=== PATIENT | female | born 2000 | race Caucasian/White ===

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

== ENCOUNTER 2022-04-17 22:51 | Emergency (ER) | payer OTHER, SELFPAY ==
[2022-04-17 22:53] VITALS: BP 110/72; PULSE 89; RESP 14; TEMP 36.8; O2SAT 100
--- NOTE | 2022-04-17 23:16 | ED.EAR ---
HPI - Ear Problem General Chief complaint: Skin/Abscess/Foreign Body Stated complaint: something stuck in ear Time Seen by Provider: 04/17/22 23:01 Source: patient History of Present Illness HPI Narrative: Patient presents with a foreign body in her ear. She reports she was using a rubber corkscrewlike Q-tip to clean her ears when it broke off. Family attempted to remove it themselves but was unsuccessful so they came to the ER for evaluation. Patient ports she does have an ear pain over on the left side. Is achy, constant, worse with manipulating the ear, no radiation. Related Data Home Medications Medication Instructions Recorded Confirmed No Home Medications 04/17/22 04/17/22 Allergies Allergy/AdvReac Type Severity Reaction Status Date / Time adhesive Allergy Severe hives Verified 04/17/22 23:07 latex Allergy Unknown HIVES Verified 04/17/22 23:07 HISTAMINES Allergy Unknown SWELLING Uncoded 04/17/22 23:07 Review of Systems Review of Systems: CONSTITUTIONAL: Denies fever, chills, or sweats. EYES: Denies visual changes, redness, or discharge. ENT: Denies rhinorrhea, congestion, sore throat. CARDIOVASCULAR: Denies chest pain, palpitations, or edema. RESPIRATORY: Denies cough or dyspnea. GASTROINTESTINAL: Denies abdominal pain, nausea, vomiting, or diarrhea. SKIN: Denies rash or itching. NEUROLOGIC: Denies numbness, dizziness, or weakness. Exam Narrative: GENERAL: Well-appearing, well-nourished, and in no acute distress. HEAD: Normocephalic, atraumatic. EYES: PERRLA and EOMI. ENT: Nares clear, no rhinorrhea or epistaxis. Haigler rubberlike foreign body visualized in the EAC. NECK: Supple. No masses. EXTREMITIES: Normal range of motion. No edema. SKIN: Warm, dry, no rash. NEURO: No focal deficits. Alert and oriented x3. PSYCH: Normal mood and affect. Course Vital Signs Vital signs: Vital Signs Temperature 36.8 C 04/17/22 22:53 Pulse Rate 89 04/17/22 22:53 Respiratory Rate 14 04/17/22 22:53 Blood Pressure 110/72 04/17/22 22:53 Pulse Oximetry 100 04/17/22 22:53 Temperature 36.8 C 04/17/22 22:53 Pulse Rate 89 04/17/22 22:53 Respiratory Rate 14 04/17/22 22:53 Blood Pressure 110/72 04/17/22 22:53 Pulse Oximetry 100 04/17/22 22:53 Procedures FB Removal Ear Foreign Body #1: Foreign Body Removal Date: 04/17/22 Foreign Body Removal Time: 23:18 Location: ear canal (L) Foreign Body Suspected: other (Rubberlike material) TM intact pre-procedure: unable to visualize Foreign Body Removed: yes Foreign Body Removal Technique: forceps Tympanic Membrane Intact Post Procedure: Yes Patient Tolerated Procedure: well Complications: none Additional Comments: Repeat exam after removal of foreign body TMs were clear there was scant blood in the EAC Medical Decision Making MDM Narrative Medical decision making narrative: H&P as above, vss, pt looks clinically well, exam foreign body in the left EAC easily removed, labs/img considered, symptomatic relief available as needed, patient treated with foreign body removal. On reevaluation pt continues to looks clinically well and had complete resolution of her pain. Suspect isolated foreign body in the EAC no remnants visualized after procedure, dns perforated TM otitis media otitis externa. plan to tx/monitor as op w/ pcm f/u findings/plan discussed with pt, pt agree/comfortable with plan, return precautions given Vital Signs Vital Signs: Vital Signs Temperature 36.8 C 04/17/22 22:53 Pulse Rate 89 04/17/22 22:53 Respiratory Rate 14 04/17/22 22:53 Blood Pressure 110/72 04/17/22 22:53 Pulse Oximetry 100 04/17/22 22:53 Temperature 36.8 C 04/17/22 22:53 Pulse Rate 89 04/17/22 22:53 Respiratory Rate 14 04/17/22 22:53 Blood Pressure 110/72 04/17/22 22:53 Pulse Oximetry 100 04/17/22 22:53 Discharge Plan Discharge Clinical Impression: Foreig
== END 2022-04-17 23:30 | disposition home or self-care (01) ==
PROVIDERS: Emergency Provider Emergency Medicine; PCP Internal Medicine
DX: T16.2XXA Foreign body in left ear, initial encounter (principal)
CPT/HCPCS: 69200; 99282

== ENCOUNTER 2024-07-10 13:41 | Emergency (ER) | payer OTHER, SELFPAY ==
--- NOTE | 2024-07-10 13:43 | ED.FEMALEGU ---
HPI - Female Genitourinary General Chief complaint: Urogenital-Female Stated complaint: Uti Symptoms Time Seen by Provider: 07/10/24 13:43 Source: patient Mode of arrival: ambulatory Limitations: no limitations History of Present Illness HPI Narrative: Naomi is a 24-year-old female patient presenting to the clinic today with complaints of possible urinary tract infection. She reports symptoms started on Wednesday with some burning with urination has been taking azo but notice yesterday that she had some blood in her urine and this prompted her to come in to be evaluated today. She denies any fevers, chills, body aches, back pain, or abdominal pain. Last menstrual period was last week. No concern for or STIs. She denies any vaginal discharge or odor. Related Data Home Medications Medication Instructions Recorded Confirmed escitalopram oxalate 20 mg tablet 20 mg PO DAILY 07/10/24 07/10/24 Allergies Allergy/AdvReac Type Severity Reaction Status Date / Time adhesive Allergy Severe hives Verified 04/17/22 23:07 latex Allergy Unknown HIVES Verified 04/17/22 23:07 hydroxyzine Allergy Unknown Verified 07/10/24 13:50 HISTAMINES Allergy Unknown SWELLING Uncoded 04/17/22 23:07 Review of Systems Review of Systems: Pertinent positives per HPI. Patient denies any fever, chills, rash, headache, visual changes, dizziness, cough, runny nose, sore throat, shortness of breath, chest pain, palpitations, nausea, vomiting, diarrhea, constipation, abdominal pain, or any urinary issues. [facility] Comments At the time of my signature, I reviewed and agree with the nursing past medical, surgical, social, and family history. There is no relevant family history pertinent to the patient complaint. Exam Narrative: General: Well-developed, well nourished, in no apparent distress. Head: Normocephalic, atraumatic. Cardio: Regular rate and rhythm, s1 and s2 normal, no murmur appreciated. Resp: Clear to auscultation bilaterally, no rhonchi, rales, wheezing or rubs. Abdomen: Soft, pliable, bowel sounds present in all quadrants, non-tender to palpation, no organomegly, no CVAT tenderness. Course Course Emergency Course: Portions of this record may have been created with voice recognition software. Level of Care: Express Care Visit Vital Signs Vital signs: Vital signs reviewed MDM - Female Genitourinary MDM Narrative Medical decision making narrative: At the time of visit patient is resting comfortably on the exam table. Patient appears to be nontoxic. Labs: Urine positive for trace of leukocytes, trace of blood, 1+ bili. We will send urine for culture. Plan: I suspect patient may have urinary tract infection. Prescription for Bactrim was sent to the pharmacy. Supportive measures were discussed with the patient and they voiced understanding discharge instructions and agrees to treatment plan. Return precautions reviewed Differential Diagnosis Differential diagnosis: Likely urinary tract infection and cystitis Discharge Plan Discharge Clinical Impression: Urinary tract infection Qualifiers: Urinary tract infection type: acute cystitis Hematuria presence: with hematuria Qualified Code(s): N30.01 - Acute cystitis with hematuria Patient Disposition: Home, Self-Care Condition: Stable Instructions: Antibiotic Form, Urinary Tract Infection in Women (ED) Additional Instructions: Urine positive for trace of bacteria, trace of blood, and 1+ bili. We will send urine for culture. Take Bactrim as prescribed Increase fluids and stay well hydrated Wipe front to back. May use wet wipes. Avoid tub baths If sexually active- pee before and after intercourse. Wear cotton panties Avoid tight clothing up against the genitals Follow up with your PCP in 1 week if symptoms persist. Prescriptions: New sulfamethoxazole-trimethoprim [Bactrim DS] 800-160 mg tablet 1 tablet PO Q12H 5 Days Qty: 10
[2024-07-10 13:50] VITALS: BP 116/71; PULSE 91; RESP 20; TEMP 36.9; O2SAT 99
[2024-07-10 14:00] LABS: EDUAAPPEAR Cloudy; EDUABILI 1+; EDUABLOOD Trace; EDUACOLOR1 Dark; EDUAGLUCOSE Negative; EDUAKETONE Negative; EDUALEUKO Trace; EDUANITRATE Negative; EDUAPH 5.5; EDUAPROTEIN Negative; EDUAUROBILI 0.2
== END 2024-07-10 14:00 | disposition home or self-care (01) ==
PROVIDERS: Emergency Provider Nurse Practitioner Family
DX: N30.01 Acute cystitis with hematuria (principal); F41.9 Anxiety disorder, unspecified
CPT/HCPCS: 81003; 87086; 99213; G0463

== ENCOUNTER 2024-09-04 15:21 | Emergency (ER) | payer OTHER, SELFPAY ==
[2024-09-04 15:49] VITALS: BP 120/80; PULSE 102; RESP 18; TEMP 36.6; O2SAT 100
[2024-09-04 18:37] LABS: Alanine Aminotransferase 18 U/L (6-35); Alkaline Phosphatase 79 U/L (38-126); Anion Gap 16 mmol/L (4-12); Aspartate Amino Transferase 49 U/L (14-36); Bilirubin,Total 1.6 mg/dL (0.2-1.3); Blood Urea Nitrogen 11 mg/dL (7-17); Calcium 9.4 mg/dL (8.4-10.2); Carbon Dioxide 18 mmol/L (22-30); Chloride 101 mmol/L (98-107); Estimated Glomerular Filt Rate > 60; Glucose 63 mg/dL (65-110); Potassium 4.2 mmol/L (3.4-5.0); Sodium 135 mmol/L (137-145)
[2024-09-04 18:38] LABS: Ethanol < 10 mg/dL (<10)
[2024-09-04] MEDS: ONDANSETRON HCL ODT 4 MG TABLET PO (18:46)
[2024-09-04] MEDS: cefTRIAXone 1 GM VIAL 0.5 GM IM (18:46)
[2024-09-04] MEDS: DOXYCYCLINE HYCLATE 100 MG TABLET PO (18:46)
[2024-09-04] MEDS: metroNIDAZOLE 500 MG TABLET PO (18:46)
[2024-09-04 18:51] VITALS: BP 109/82; PULSE 108; RESP 18; O2SAT 100
[2024-09-04] MEDS: LIDOCAINE HCL 1% LOCAL INJ 10 ML VIAL (18:52)
[2024-09-04 18:59] LABS: Add Urine Microscopic? YES; Appearance Urine Clear (Clear); Bacteria Urine None Seen /hpf; Bilirubin Urine Negative (Negative); Blood Urine 3+ (Negative); Color Urine Yellow (Yellow); Glucose Urine UA Negative (Negative); Ketones Urine 4+ mg/dL (Negative); Leukocyte Esterase Ur Negative LEU/UL (Negative); Nitrate Urine Negative (Negative); Non Pathogenic Casts 0-2; Protein Urine Negative (Negative); Specific Grav Ur 1.018 (1.001-1.035); Squamous Epithelial Cell Urine Occasional /hpf (Few); Urobilinogen Urine 0.2 mg/dL (<2.0); WBC Urine 0-5 /hpf (0-3); pH Urine 5.5 (5.0-9.0)
[2024-09-04 19:16] LABS: HIV 1/2 Ab P24 Ag Result Negative (Negative)
[2024-09-04 19:24] LABS: BEDSIDEPREGUCG Negative (Negative)
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
[2024-09-04 19:37] LABS: Amphetamine Screen Urine Negative (Negative); Barbiturate Screen Urine Negative (Negative); Benzodiazepines Screen Urine Negative (Negative); Cannabinoid Screen Urine Positive (Negative); Cocaine Screen Urine Negative (Negative); Methadone Screen Urine Negative (Negative); Opiate Screen Urine Negative (Negative); Phencyclidine Screen Urine Negative (Negative)
[2024-09-04 19:58] LABS: Trichomonas Vag PCR NOT DETECTED (NOT DETECTE)
[2024-09-04 20:21] LABS: Chlamydia trachomatis NOT DETECTED (NOT DETECTE); Neisseria gonorrhoeae PCR NOT DETECTED (NOT DETECTE)
[2024-09-04 22:15] LABS: Rapid Plasma Reagin Non-Reactive (NonReactive)
== END 2024-09-04 21:01 | disposition home or self-care (01) ==
LOC: ANHED 20:32
PROVIDERS: Emergency Provider Emergency Medicine; PCP Internal Medicine
DX: T74.21XA Adult sexual abuse, confirmed, initial encounter (principal); Y07.50 Unspecified non-family member, perpetrator of maltreatment and neglect
CPT/HCPCS: 36415; 80053; 80307; 81001; 81025; 82077; 86592; 86703; 87491; 87591; 87661; 96372; 99285; A9270; G0432; J0696; J2003

== ENCOUNTER 2024-10-22 14:18 | Emergency (ER) | payer OTHER, SELFPAY ==
[2024-10-22 14:35] VITALS: BP 117/79; PULSE 93; RESP 16; TEMP 37.2; O2SAT 98
--- NOTE | 2024-10-22 14:59 | ED.SKABFB ---
HPI - Skin/Abscess/Foreign Bdy General Chief complaint: Skin/Abscess/Foreign Body Stated complaint: Hives Source: patient Mode of arrival: ambulatory Limitations: no limitations History of Present Illness HPI narrative: 24-year-old female presented for complaint of ?hives? to the face and neck. She states she has had these same areas of redness and itching since high school. She use to put triamcinolone cream on them but is out of the cream. Denies lip, tongue, or throat swelling, shortness of breath or wheezing. Denies changes to soap, detergent, lotion, or any other exposures. No one else in the house or any contacts with similar symptoms. Related Data Allergies Allergy/AdvReac Type Severity Reaction Status Date / Time adhesive Allergy Severe hives Verified 10/22/24 15:06 latex Allergy Unknown HIVES Verified 10/22/24 15:06 hydroxyzine Allergy Unknown Verified 10/22/24 15:06 HISTAMINES Allergy Unknown SWELLING Uncoded 10/22/24 15:06 Review of Systems Review of Systems: CONSTITUTIONAL: Denies body aches, fever, chills, or sweats. EYES: Denies visual changes, redness, or discharge. ENT: Denies rhinorrhea, congestion CARDIOVASCULAR: Denies chest pain, palpitations, or edema. RESPIRATORY: Denies cough or dyspnea. GASTROINTESTINAL: Denies abdominal pain, nausea, vomiting, or diarrhea. SKIN: per HPI MUSCULOSKELETAL: Denies back pain, joint pain, or myalgia. NEUROLOGIC: Denies headache, numbness, tingling, or weakness. [facility] Past Medical History Medical History Healthy female adult Surgical History Surgical History No history of previous surgery Comments At time of signature, I have reviewed and agree with nursing past medical, surgical, social and family history unless otherwise noted. Please see nursing chart for further information. There is no relevant family history pertinent to the presenting complaint Exam Narrative: GENERAL: Well-appearing EYES: conjunctivae clear, and EOMI. ENT: Mucous membranes moist. Oropharynx without edema, erythema or lesions. CHEST: Clear to auscultation. HEART: Regular rate and rhythm. SKIN: Warm, dry. Scattered patches of scaly erythema to cheeks and neck c/w eczema. NEURO: Alert and oriented x3. Course Course Emergency Course: Patient is aware of diagnosis, understands and agrees to treatment plan. Anticipatory guidance given. Patient agrees to follow-up as directed and is aware of reasons to seek care at the emergency department. Portions of this record may have been created with voice recognition software Level of Care: Express Care Visit Vital Signs Vital signs: Vital Signs Temperature 99 F 10/22/24 14:35 Pulse Rate 93 10/22/24 14:35 Respiratory Rate 16 10/22/24 14:35 Blood Pressure 117/79 10/22/24 14:35 Pulse Oximetry 98 10/22/24 14:35 Temperature 99 F 10/22/24 14:35 Pulse Rate 93 10/22/24 14:35 Respiratory Rate 16 10/22/24 14:35 Blood Pressure 117/79 10/22/24 14:35 Pulse Oximetry 98 10/22/24 14:35 Reviewed MDM - Skin/Abscess/Foreign Bdy MDM Narrative Medical decision making narrative: Discussed physical exam findings. Advised supportive measures and signs/symptoms to go to the ER. Pt is appropriate for outpt treatment and f/u. Differential Diagnosis Differential diagnosis: Likely abscess of skin or subcutaneous tissue, urticaria, herpes zoster, cellulitis and contact dermatitis Discharge Plan Discharge Clinical Impression: Eczema Patient Disposition: Home, Self-Care Condition: Stable Instructions: Antibiotic Form, Eczema (ED) Additional Instructions: Wash the area with gentle soap and water only. Allow to fully dry. Use skin cream as prescribed Avoid scratching when possible to prevent worsening of the condition and disruption of the skin that could lead to bacterial infection Avoid irritants. Continue CereVe Follow up with your primary care provider as needed in 1 week Go to the ER for worsening symptoms or concerns Prescriptions: New triamcinolone acetonide 0.025 % cream 1 applic topical BID Qty: 15 0RF No Action doxycycline monohydrate 100 mg capsule 100 mg PO BID Qty: 14 0RF metronidazole 500 mg tablet 500 mg PO Q12H Qty: 14 0RF ondansetron 4 mg tablet,disintegrating 4 mg PO Q6H Qty: 10 0RF Follow-up/Referrals: Moreno,Nick Cortez MD [Primary Care Provider] - Time of Disposition: 15:06
== END 2024-10-22 15:09 | disposition home or self-care (01) ==
PROVIDERS: Emergency Provider Nurse Practitioner Family; PCP Internal Medicine
DX: L30.9 Dermatitis, unspecified (principal)
CPT/HCPCS: 99213; G0463